=== PATIENT | male | born 1980 | race Caucasian/White ===

== ENCOUNTER 2021-02-09 21:53 | Emergency (ER) | payer MEDICAID, OTHER ==
[2021-02-09 21:59] VITALS: BP 137/90; PULSE 84
--- NOTE | 2021-02-09 22:31 | EDM.PDOC ---
ED HPI GENERAL MEDICAL PROBLEM - General Chief Complaint: General Stated Complaint: pain behind R leg Time Seen by Provider: 02/09/21 22:01 Source of Information: Reports: Patient History Limitations: Reports: No Limitations - History of Present Illness INITIAL COMMENTS - FREE TEXT/NARRATIVE: Patient complains of sudden pain/david-horse sensation behind right thigh. Shortly thereafter felt some numbness in three lateral right toes. No actual leg weakness noted. Pain started when he was getting in/out of a chair. No history of similar pain in past. Able to walk/bear weight. No other acute changes. No injury. Patient is very active however and also lifts weights. Right Leg Pain Score (Numeric/FACES): 3 - Related Data Allergies Allergy/AdvReac Type Severity Reaction Status Date / Time No Known Allergies Allergy Verified 04/12/17 10:35 Home Meds: Home Meds Omeprazole Magnesium [Prilosec Otc] 20 mg PO BEDTIME 02/09/21 [History] Past Medical History Dermatologic History: Reports: Other (See Below) Other Dermatologic History: lymphadenopathy, tender masses Social & Family History - Family History Family Medical History: No Pertinent Family History - Caffeine Use Caffeine Use: Reports: None ED ROS GENERAL - Review of Systems Review Of Systems: Comprehensive ROS is negative, except as noted in HPI. Constitutional: Reports: No Symptoms HEENT: Reports: No Symptoms Respiratory: Reports: No Symptoms Cardiovascular: Reports: No Symptoms GI/Abdominal: Reports: No Symptoms : Reports: No Symptoms Musculoskeletal: Reports: Leg Pain Skin: Reports: No Symptoms Neurological: Reports: Other (right toes 3/4/5 feel rick) Psychiatric: Reports: No Symptoms Hematologic/Lymphatic: Reports: No Symptoms Immunologic: Reports: No Symptoms ED EXAM, GENERAL - Physical Exam Exam: See Below Exam Limited By: No Limitations General Appearance: Alert, WD/WN, No Apparent Distress Eye Exam: Bilateral Eye: EOMI, PERRL Ears: Hearing Grossly Normal Nose: No: Nasal Deformity, Nasal Swelling, Nasal Drainage Throat/Mouth: Normal Lips, Normal Voice, No Airway Compromise Head: Atraumatic, Normocephalic Neck: Supple Respiratory/Chest: No Respiratory Distress Back Exam: Normal Inspection. No: CVA Tenderness (L), CVA Tenderness (R), Muscle Spasm, Paraspinal Tenderness, Vertebral Tenderness Extremities: Normal Capillary Refill, Other (tender with pressure over mid posterior right thigh soft tissue. Non-tender proximal/distal thigh. Good strength and ROM right and left leg/hip/knee/foot. ) Neurological: Alert, Oriented, Normal Cognition, Other (subjective feeling of numbness right toes 3/4/5) Psychiatric: Normal Affect, Normal Mood Skin Exam: Warm, Dry, Intact, Normal Color Course - Vital Signs Last Recorded V/S: Last Vital Signs Temp 37.1 C 02/09/21 21:53 Pulse 84 02/09/21 21:53 Resp 18 02/09/21 21:53 BP 137/90 02/09/21 21:53 Pulse Ox 99 02/09/21 21:53 - Orders/Labs/Meds Orders: Active Orders 24 hr Category Date Time Status methylPREDNISolone Sod Succ [Solu-MEDROL] Med 02/09/21 22:26 Once 125 mg IM ONETIME ONE - Re-Assessments/Exams Free Text/Narrative Re-Assessment/Exam: 02/09/21 22:33 Suspect some sort of soft tissue injury/nerve compression however does not follow usual sciatica pattern. No low back pain/gluteal tenderness at sciatic notch. No obvious muscle tear/hematoma. For now will treat with Solumedrol for inflammation and send patient home with Tramadol for PRN use. Recommend he follow up with PCP next week for recheck. May need advanced imaging studies if symptoms do not improve. Departure - Departure Time of Disposition: 22:35 Disposition: Home, Self-Care 01 Condition: Good Clinical Impression: Numbness of toes Acute thigh pain Qualifiers: Laterality: right Qualified Code(s): M79.651 - Pain in right thigh - Discharge Information *PRESCRIPTION DRUG MONITORING PROGRAM REVIEWED*: Not Applicable *COPY OF PRESCRIPTION DRUG MONITORING REPORT IN PATIENT BLAYNE: Not Applicable Referrals: Lauren Prather, [employer] [employer] [Primary Care Provider] - Additional Instructions: Take it easy for the next week. Avoid heavy lifting/strain. See how the pain and numbness is over the next few days and if things change. Take Ibuprofen or Aleve or Tylenol for pain. OK to take the Tramadol we gave you tonight 1 every 6 hours as needed for pain along with either Tylenol or Ibuprofen. You may want to avoid Ibuprofen/Aleve if your stomach has been upset this past week however. Follow up with your primary provider next week. If you are still having symptoms you may want to be seen at [facility] in [place]. They may need to consider advanced imaging such as MRI as we discussed if these symptoms do not improve. Sepsis Event Note (ED) - Focused Exam Vital Signs: Vital Signs Temp Pulse Resp BP Pulse Ox 02/09/21 21:53 37.1 C 84 18 137/90 99 - My Orders Last 24 Hours: My Active Orders 02/09/21 22:26 methylPREDNISolone Sod Succ [Solu-MEDROL] 125 mg IM ONETIME ONE - Assessment/Plan Last 24 Hours: My Active Orders 02/09/21 22:26 methylPREDNISolone Sod Succ [Solu-MEDROL] 125 mg IM ONETIME ONE
[2021-02-09] MEDS: methylPREDNISolone Sodium Succinate 125 MG/2 ML SDV IM ONE (22:51)
== END 2021-02-09 22:55 | disposition home or self-care (01) ==
LOC: LL.ED 21:53
DX: M79.651 Pain in right thigh (principal); R20.0 Anesthesia of skin; Z79.899 Other long term (current) drug therapy
CPT/HCPCS: 96372; 99283; 99284; J2930

== ENCOUNTER 2023-06-05 20:54 | Observation (INO) | payer OTHER ==
[2023-06-05] MEDS ORDERED: Sodium Chloride 0.9% 10 ML Syringe FLUSH PRN (20:57)
[2023-06-05] MEDS ORDERED: Ondansetron 4 MG/2 ML SDV IVPUSH ONE (20:58)
[2023-06-05 21:18] LABS: BASOPHILS ABSOLUTE AUTO 0.02 K/uL (0.00-0.20); BASOPHILS PERCENT AUTO 0.3 % (0.0-2.0); EOSINOPHILS PERCENT AUTO 2.7 % (0.0-5.0); HEMATOCRIT 45.9 % (39.0-49.0); HEMOGLOBIN 15.8 g/dL (13.1-16.8); LYMPHOCYTES ABSOLUTE AUTO 2.09 K/uL (0.50-3.50); LYMPHOCYTES PERCENT AUTO 28.1 % (10.0-50.0); MEAN CORPUSCULAR HGB CONC 34.4 g/dL (31.7-36.0); MEAN CORPUSCULAR VOLUME 87.3 fL (84.0-98.0); MONOCYTES ABSOLUTE AUTO 0.66 K/uL (0.00-1.00); MONOCYTES PERCENT AUTO 8.9 % (2.0-14.0); NEUTROPHILS ABSOLUTE AUTO 4.48 K/uL (1.40-7.00); PLATELET COUNT,PLT 238 K/uL (150-350); RED BLOOD CELL COUNT 5.26 M/uL (4.33-5.41); RED CELL DISTRIBUTION WIDTH 13.1 % (11.2-14.1); WHITE BLOOD CELL COUNT,WBC 7.5 K/uL (4.0-10.2)
[2023-06-05 21:34] LABS: ALANINE AMINOTRANSFERASE,ALT 37 U/L (12-78); ALBUMIN 3.8 g/dL (3.4-5.0); ALKALINE PHOSPHATASE 97 IU/L (46-116); ASPARTATE AMNIOTRANSFERASE,AST 17 U/L (15-37); BILIRUBIN TOTAL 0.6 mg/dL (0.2-1.0); BLOOD UREA NITROGEN,BUN 14 mg/dL (7-18); CALCIUM 8.7 mg/dL (8.5-10.1); CHLORIDE,CL 104 mmol/L (98-107); CREATININE 1.39 mg/dL (0.51-1.17); GLUCOSE RANDOM 113 mg/dL (70-99); MAGNESIUM 1.8 mg/dL (1.8-2.4); POTASSIUM,K 3.6 mmol/L (3.5-5.1); PROTEIN TOTAL,TP 7.1 g/dL (6.4-8.2); SODIUM,NA 141 mmol/L (136-145)
[2023-06-05 21:46] LABS: ESTIMATED GFR 65 mL/min (>=60)
[2023-06-05] MEDS ORDERED: Sodium Chloride 0.9% 1,000 ML IV ONE (21:50)
[2023-06-05] MEDS ORDERED: Ketorolac 15 MG/ML SDV IVPUSH ONE (21:59)
[2023-06-05 22:09] LABS: CORONAVIRUS COVID-19 NAA NEGATIVE (NEGATIVE); INFLUENZA A NAA NEGATIVE (NEGATIVE); INFLUENZA B NAA NEGATIVE (NEGATIVE); RESPIRATORY SYNCYTIAL VIR NAA NEGATIVE (NEGATIVE)
[2023-06-05 22:28] LABS: APPEARANCE,URINE CLEAR; BILIRUBIN,URINE NEGATIVE (NEGATIVE); COLOR,URINE YELLOW; GLUCOSE,URINE NEGATIVE (NEGATIVE); KETONES,URINE NEGATIVE (NEGATIVE); LEUKOCYTE ESTERASE,URINE NEGATIVE (NEGATIVE); NITRITE,URINE NEGATIVE (NEGATIVE); OCCULT BLOOD,URINE NEGATIVE (NEGATIVE); PH,URINE 8.5 (5.0-9.0); PROTEIN,URINE NEGATIVE (NEGATIVE); UROBILINOGEN,URINE 0.2 E.U./dL (0.2-1.0)
[2023-06-05] MEDS ORDERED: Pantoprazole 40 MG Vial IVPUSH ONE (22:35)
[2023-06-05] MEDS ORDERED: Acetaminophen 325 MG Tab PO PRN (22:58)
[2023-06-05] MEDS ORDERED: Ketorolac 15 MG/ML SDV IVPUSH PRN (23:04)
[2023-06-05] MEDS ORDERED: traMADol 50 MG Tab PO ONE (23:40)
[2023-06-05] MEDS: Sodium Chloride 0.9% 1,000 ML IV SCH (23:44)
[2023-06-06] MEDS ORDERED: Ondansetron 4 MG/2 ML SDV IVPUSH ONE ×2 (03:00→09:00)
[2023-06-06 05:57] VITALS: BP 119/83; PULSE 74
[2023-06-06] MEDS: Sodium Chloride 0.9% 1,000 ML IV SCH (06:05)
[2023-06-06] MEDS ORDERED: traMADol 50 MG Tab PO ONE (08:08)
[2023-06-06 08:51] LABS: BASOPHILS ABSOLUTE AUTO 0.01 K/uL (0.00-0.20); BASOPHILS PERCENT AUTO 0.2 % (0.0-2.0); EOSINOPHILS ABSOLUTE AUTO 0.17 K/uL (0.00-0.50); EOSINOPHILS PERCENT AUTO 2.6 % (0.0-5.0); HEMOGLOBIN 14.4 g/dL (13.1-16.8); LYMPHOCYTES ABSOLUTE AUTO 1.74 K/uL (0.50-3.50); LYMPHOCYTES PERCENT AUTO 26.3 % (10.0-50.0); MEAN CORPUSCULAR HEMOGLOBIN 29.8 pg (28.2-33.3); MEAN CORPUSCULAR HGB CONC 33.5 g/dL (31.7-36.0); MEAN CORPUSCULAR VOLUME 88.8 fL (84.0-98.0); MONOCYTES ABSOLUTE AUTO 0.55 K/uL (0.00-1.00); MONOCYTES PERCENT AUTO 8.3 % (2.0-14.0); NEUTROPHILS ABSOLUTE AUTO 4.15 K/uL (1.40-7.00); NEUTROPHILS PERCENT AUTO 62.6 % (45.0-80.0); PLATELET COUNT,PLT 191 K/uL (150-350); RED BLOOD CELL COUNT 4.84 M/uL (4.33-5.41); RED CELL DISTRIBUTION WIDTH 13.1 % (11.2-14.1); WHITE BLOOD CELL COUNT,WBC 6.6 K/uL (4.0-10.2)
[2023-06-06 09:00] LABS: ANION GAP 4.2 meq/L (7-15); BLOOD UREA NITROGEN,BUN 12 mg/dL (7-18); CARBON DIOXIDE,CO2 29.8 mmol/L (21.0-32.0); CHLORIDE,CL 106 mmol/L (98-107); CREATININE 1.23 mg/dL (0.51-1.17); GLUCOSE RANDOM 107 mg/dL (70-99); POTASSIUM,K 3.7 mmol/L (3.5-5.1); SODIUM,NA 140 mmol/L (136-145)
[2023-06-06] MEDS ORDERED: Pantoprazole 40 MG Vial IVPUSH ONE (09:00)
[2023-06-06 09:01] LABS: ESTIMATED GFR 75 mL/min (>=60)
== END 2023-06-06 12:39 | disposition home or self-care (01) ==
LOC: LL.ED 20:54 → LL.MS 22:39
PROVIDERS: ADMIT Emergency Medicine; ATTEND Emergency Medicine
DX: R11.2 Nausea with vomiting, unspecified (principal); R42 Dizziness and giddiness; B34.9 Viral infection, unspecified; R51.9 Headache, unspecified; K21.9 Gastro-esophageal reflux disease without esophagitis; Z20.822 Contact with and (suspected) exposure to COVID-19; Z79.899 Other long term (current) drug therapy; Z88.2 Allergy status to sulfonamides
CPT/HCPCS: 0241U; 36415; 71046; 80048; 80053; 81003; 82375; 83605; 83735; 84484; 85025; 93005; 96361; 96374; 96375; 96376; 99285-25; A9270-GY; C9113; G0378; J1885; J2405; J3490; J7030